=== PATIENT | female | born 1965 | race Caucasian/White ===

== ENCOUNTER 2017-10-11 13:27 | Emergency (ER) | payer SELFPAY ==
[~2017-10-11] VITALS: Ht 154.9 cm; Wt 65.9 kg
[~2017-10-11 13:27] MED LIST: PREN0.01 PO
[2017-10-11 13:31] VITALS: BP 127/69; PULSE 75; RESP 16; TEMP 98; O2SAT 95
[2017-10-11] MEDS ORDERED: SODIUM CHLOR 0.9% 1000 ML INJ 1,000 ML IV SCH (14:05)
[2017-10-11] MEDS ORDERED: SODIUM CHLORIDE 0.9% FLUSH 10 ML FLUSH IV FLUSH PRN (14:15)
[2017-10-11] MEDS ORDERED: ONDANSETRON HCL 4 MG/2 ML VIAL IV PUSH ONE (14:15)
[2017-10-11 14:19] VITALS: BP 154/81; PULSE 73; RESP 16; O2SAT 100
[2017-10-11 14:21] VITALS: PULSE 60; RESP 18; O2SAT 100
[2017-10-11] MEDS ORDERED: PERC5TAB12 PO (14:26)
[2017-10-11 14:35] LABS: AUTOMATED NEUTROPHIL # 2.4 TH/MM3 (1.8-7.7); BASOPHIL # 0.1 TH/MM3 (0-0.2); BASOPHIL % 1.2 % (0.0-2.0); EOSINOPHIL # 0.4 TH/MM3 (0-0.4); EOSINOPHIL % 5.7 % (0.0-4.0); HEMATOCRIT 35.4 % (35.0-46.0); HEMOGLOBIN 11.6 GM/DL (11.6-15.3); LYMPH % 41.2 % (9.0-44.0); LYMPHOCYTE # 2.6 TH/MM3 (1.0-4.8); MEAN CELL VOLUME 79.3 FL (80.0-100.0); MEAN CORPUSCULAR HEMOGLOBIN 25.9 PG (27.0-34.0); MEAN CORPUSCULAR HGB CONC 32.7 % (32.0-36.0); MEAN PLATELET VOLUME 7.2 FL (7.0-11.0); MONO % 13.2 % (0.0-8.0); MONOCYTE # 0.8 TH/MM3 (0-0.9); NEUT % 38.7 % (16.0-70.0); PLATELET COUNT 511 TH/MM3 (150-450); RED BLOOD COUNT 4.46 MIL/MM3 (4.00-5.30); RED CELL DISTRIBUTION WIDTH 17.8 % (11.6-17.2); WHITE BLOOD COUNT 6.3 TH/MM3 (4.0-11.0)
[2017-10-11 14:37] LABS: BILIRUBIN, URINE NEG (NEG); BLOOD, URINE NEG (NEG); GLUCOSE,URINE NEG (NEG); KETONE, URINE 10 mg/dL (NEG); MUCUS URINE MOD /lpf (OCC); NITRITE,URINE NEG (NEG); PH, URINE 5.5 (5.0-8.5); SQUAMOUS EPITHELIAL CELL URINE 5 /hpf (0-5); URINE COLOR YELLOW (YELLW/STRAW); URINE LEUKOCYTE ESTERASE LARGE (NEG)
--- NOTE | 2017-10-11 15:03 | PD ---
HPI Chief Complaint: GI Complaint Time Seen by Provider: 13:55 Travel History International Travel<30 days: No Contact w/Intl Traveler<30days: No Traveled to known affect area: No History of Present Illness HPI 52-year-old female presents to the emergency Department with complaint of continued epigastric abdominal pain 4 days. She is status post right-sided oophorectomy from September 23 secondary to ovarian torsion. On Saturday she was seen at [facility] and was worked up for her abdominal pain and diagnosed with pancreatitis. She was eating a low protein diet as directed with no improvement in symptoms. She started drinking. Liquids 18 hours ago with no improvement in symptoms. Reports nausea without vomiting. Denies fevers, dysuria, change in stool. Denies alcohol use. She has tried using a heating pad and taking Percocet for symptom management. Rates pain 8/10. No known relieving or aggravating factors. Primary care provider is Dr. Plasencia. Allergies to amoxicillin and bee stings. History of oophorectomy, cholecystectomy and plastic surgery to the abdomen. Denies significant past medical history. Has no other medical complaints. No other modifying factors or associated signs and symptoms. PFSH Past Medical History Genitourinary: Yes (OVARIAN TORSION) Immunizations Current: Yes Tetanus Vaccination: Unknown ?: Not Past Surgical History Abdominal Surgery: Yes (GALLBLADDER REMOVED ) Genitourinary Surgery: Yes (RIGHT OOPHORECTOMY ) Other Surgery: Yes (SKIN REMOVAL SURGERY S/P WEIGHT LOSS, LUMPECTOMY RIGHT AXILLA) Social History Alcohol Use: Yes (RARE) Tobacco Use: No Substance Use: No Allergies-Medications (Allergen,Severity, Reaction): Coded Allergies: amoxicillin (Unverified Allergy, Severe, 10/11/17) Reported Meds & Prescriptions Reported Meds & Active Scripts Active Zofran Odt (Ondansetron Odt) 4 Mg Tab 4 Mg SL Q8HR PRN Reported Percocet (Oxycodone-Acetaminophen) 5-325 mg Tab 1 Tab PO Q6H PRN Review of Systems Except as stated in HPI: all other systems reviewed are Neg Physical Exam Narrative GENERAL: Well-nourished, well-developed female patient, in no acute distress; afebrile SKIN: Warm and dry. HEAD: Atraumatic. Normocephalic. EYES: Pupils equal and round. No scleral icterus. No injection or drainage. ENT: Mucosa pink and moist. Airway patent. NECK: Trachea midline. CARDIOVASCULAR: Regular rate and rhythm. No murmur appreciated. RESPIRATORY: No accessory muscle use. Clear to auscultation. Breath sounds equal bilaterally. GASTROINTESTINAL: Abdomen soft, tenderness on palpation to epigastric region, nondistended. Hepatic and splenic margins not palpable. Bowel sounds are active 4 quadrants. Nonrigid. No guarding. BACK: No CVA tenderness. MUSCULOSKELETAL: No obvious deformities. No clubbing. No cyanosis. No edema. NEUROLOGICAL: Awake and alert. Oriented 3. No obvious cranial nerve deficits. Motor grossly within normal limits. Normal speech. PSYCHIATRIC: Appropriate mood and affect; insight and judgment normal. Data Data Last Documented VS Vital Signs Date Time Temp Pulse Resp B/P (MAP) Pulse Ox O2 Delivery O2 Flow Rate FiO2 10/11/17 18:06 83 18 109/58 (75) 99 Room Air 10/11/17 13:31 98.0 Orders Orders Complete Blood Count With Diff (10/11/17 14:05) Comprehensive Metabolic Panel (10/11/17 14:05) Lipase (10/11/17 14:05) Urinalysis - C+S If Indicated (10/11/17 14:05) Iv Access Insert/Monitor (10/11/17 14:05) Ecg Monitoring (10/11/17 14:05) Oximetry (10/11/17 14:05) Sodium Chlor 0.9% 1000 Ml Inj (Ns 1000 M (10/11/17 14:05) Sodium Chloride 0.9% Flush (Ns Flush) (10/11/17 14:15) Ondansetron Inj (Zofran Inj) (10/11/17 14:15) Ketorolac Inj (Toradol Inj) (10/11/17 16:30) Abdomen, Kub Only (10/11/17 ) Pantoprazole Inj (Protonix Inj) (10/11/17 16:45) Morphine Inj (Morphine Inj) (10/11/17 19:00) Ed Discharge Order (10/11/17 19:50) Labs Laboratory Tests Test 10/11/17 14:15 10/11/17 14:20 Urine Color YELLOW Urine Turbidity HAZY Urine pH 5.5 Urine Specific [place] 1.030 Urine Protein TRACE mg/dL Urine Glucose (UA) NEG mg/dL Urine Ketones 10 mg/dL Urine Occult Blood NEG Urine Nitrite NEG Urine Bilirubin NEG Urine Urobilinogen 2.0 MG/DL Urine Leukocyte Esterase LARGE Urine RBC 1 /hpf Urine WBC 3 /hpf Urine Squamous Epithelial Cells 5 /hpf Urine Mucus MOD /lpf Microscopic Urinalysis Comment CULT NOT INDICATED White Blood Count 6.3 TH/MM3 Red Blood Count 4.46 MIL/MM3 Hemoglobin 11.6 GM/DL Hematocrit 35.4 % Mean Corpuscular Volume 79.3 FL Mean Corpuscular Hemoglobin 25.9 PG Mean Corpuscular Hemoglobin Concent 32.7 % Red Cell Distribution Width 17.8 % Platelet Count 511 TH/MM3 Mean Platelet Volume 7.2 FL Neutrophils (%) (Auto) 38.7 % Lymphocytes (%) (Auto) 41.2 % Monocytes (%) (Auto) 13.2 % Eosinophils (%) (Auto) 5.7 % Basophils (%) (Auto) 1.2 % Neutrophils # (Auto) 2.4 TH/MM3 Lymphocytes # (Auto) 2.6 TH/MM3 Monocytes # (Auto) 0.8 TH/MM3 Eosinophils # (Auto) 0.4 TH/MM3 Basophils # (Auto) 0.1 TH/MM3 CBC Comment DIFF FINAL Differential Comment Blood Urea Nitrogen 11 MG/DL Creatinine 0.69 MG/DL Random Glucose 91 MG/DL Total Protein 7.9 GM/DL Albumin 4.2 GM/DL Calcium Level 9.1 MG/DL Alkaline Phosphatase 76 U/L Aspartate Amino Transf (AST/SGOT) 35 U/L Alanine Aminotransferase (ALT/SGPT) 26 U/L Total Bilirubin 0.7 MG/DL Sodium Level 138 MEQ/L Potassium Level 3.9 MEQ/L Chloride Level 104 MEQ/L Carbon Dioxide Level 27.5 MEQ/L Anion Gap 7 MEQ/L Estimat Glomerular Filtration Rate 90 ML/MIN Lipase 102 U/L [facility] Medical Decision Making Medical Screen Exam Complete: Yes Emergency Medical Condition: Yes Medical Record Reviewed: Yes Differential Diagnosis Pancreatitis, abdominal pain, gastritis Narrative Course 52-year-old female with epigastric abdominal pain. Was seen at [facility] on Saturday and diagnosed with pancreatitis. Says she had a CT scan of her abdomen and I will request records. Patient placed on cardiopulmonary monitor. IV site obtained. CBC, CMP, lipase, urinalysis, normal saline bolus, Zofran ordered. 1500: CBC unremarkable. Urinalysis without signs of infection. 1546: CMP unremarkable. Lipase 106. 1822: Abdominal x-ray concludes: Abdomen X-Ray 10/11/17 0000 Signed Impressions: Service Date/Time: Wednesday, October 11, 2017 17:02 - CONCLUSION: Nonspecific bowel gas pattern with a moderate amount of stool throughout the colon. Mookie Buck MD 1954: CT scan of the abdomen from [facility] still not been received after 5 hours and multiple attempts. I discussed the patient with attending physician, Dr. Peterson, and she agrees the patient is stable for discharge and can follow up outpatient with gastroenterology. I discussed this with the patient and she is ready to go home and feels comfortable with discharge. Patient given information for [facility]. Instructed patient to follow up with gastrology. Zofran and Percocet prescribed for home. Instructed patient to follow up with primary care provider. Patient verbalizes understanding and agreement with treatment plan. Patient is medically cleared and stable for discharge. Discussed reasons to return to the emergency department. Patient agrees with treatment plan. The patients vital signs are stable and the patient is stable for outpatient follow-up and treatment. Patient discharged home, stable and in no acute distress. Diagnosis Primary Impression: Abdominal pain Qualified Codes: R10.13 - Epigastric pain Referrals: [facility] [employer] Leader Primary Care Physician Patient Instructions: Abdominal Pain (ED), General Instructions Additional Instructions: Take Zofran as prescribed Increase fluid intake, starting with clear fluids; advancing to a bland diet as tolerated Advance diet slowly as tolerated Follow-up primary care provider in next 1-2 days Follow-up with production clerks supervisor Return to emergency department immediately with worsening of symptoms Med/Other Pt SpecificInfo: Prescription(s) given Scripts Oxycodone-Acetaminophen (Percocet) 2.5-325 mg Tab 1 TAB PO Q6H Y for PAIN SCALE 1 TO 10, #10 TAB 0 Refills Prov: Mariann Matta 10/11/17 Ondansetron Odt (Zofran Odt) 4 Mg Tab 4 MG SL Q8HR Y for Nausea/Vomiting, #8 TAB 0 Refills Prov: Mariann Matta 10/11/17 Disposition: 01 DISCHARGE HOME Condition: Stable Mariann Matta Oct 11, 2017 15:02
[2017-10-11 15:14] LABS: ALKALINE PHOSPHATASE 76 U/L (45-117); TOTAL BILIRUBIN ADULT 0.7 MG/DL (0.2-1.0); TOTAL PROTEIN 7.9 GM/DL (6.4-8.2)
[2017-10-11 15:41] LABS: BLOOD UREA NITROGEN 11 MG/DL (7-18); CREATININE 0.69 MG/DL (0.50-1.00); GLOMERULAR FILTRATION RATE 90 ML/MIN (>89); GLUCOSE,RANDOM 91 MG/DL (74-106)
[2017-10-11 15:42] LABS: ALBUMIN 4.2 GM/DL (3.4-5.0); ALT (GPT) 26 U/L (10-53); AST (GOT) 35 U/L (15-37); BICARBONATE 27.5 MEQ/L (21.0-32.0); CALCIUM 9.1 MG/DL (8.5-10.1); CHLORIDE 104 MEQ/L (98-107); LIPASE 102 U/L (73-393); SODIUM (NA) 138 MEQ/L (136-145)
[2017-10-11] MEDS ORDERED: KETOROLAC TROMETHAMINE 30 MG/ML (IVP) VIAL IV PUSH ONE (16:30)
[2017-10-11] MEDS ORDERED: PANTOPRAZOLE SODIUM 40 MG VIAL IV PUSH ONE (16:45)
--- NOTE | 2017-10-11 17:20 | RADRPT ---
EXAM DATE/TIME: 10/11/2017 17:02 [place] COMPARISON: No previous studies available for comparison. INDICATIONS : Abdominal pain. MEDICAL HISTORY : Ovarian torsion SURGICAL HISTORY : Cholecystectomy. Oophorectomy ENCOUNTER: Initial ACUITY: 2 weeks PAIN SCORE: 9/10 LOCATION: Bilateral abdomen FINDINGS: Supine view of the abdomen was performed. The abdominal bowel gas pattern is normal. There is moder ate stool throughout the colon. There are some surgical clips in the upper abdomen. No definite calci fications are seen overlying the kidneys.. The osseous structures are unremarkable. CONCLUSION: Nonspecific bowel gas pattern with a moderate amount of stool throughout the colon. Mookie Buck MD on October 11, 2017 at 17:18 Board Certified Radiologist. This report was verified electronically.
[2017-10-11 18:06] VITALS: BP 109/58; PULSE 83; RESP 18; O2SAT 99
[2017-10-11] MEDS ORDERED: MORPHINE SULFATE 4 MG/ML INJ IV PUSH ONE (19:00)
[2017-10-11] MEDS ORDERED: ZOFR4TAB3 SL (19:53)
[2017-10-11] MEDS ORDERED: PERC2.5T PO (19:58)
== END 2017-10-11 20:41 | disposition home or self-care (01) ==
LOC: NEPC 13:27
DX: R10.13 Epigastric pain (principal); R11.0 Nausea; Z88.0 Allergy status to penicillin
CPT/HCPCS: 74000; 80053; 81001; 83690; 85025; 96374; 96375; 99284; C9113; J1885; J2270; J2405; J7030